=== PATIENT | female | born 2000 | race Caucasian/White ===

== ENCOUNTER 2021-01-04 16:07 | Emergency (ER) | payer OTHER ==
[~2021-01-04] VITALS: Ht 162.6 cm; Wt 47.6 kg
[2021-01-04] MEDS ORDERED: PEPCID AC20 MG PO (22:44)
[2021-01-04] MEDS ORDERED: NAPROXEN500 MG PO (22:44)
== END 2021-01-04 22:50 | disposition home or self-care (01) ==
LOC: ER 16:07
DX: N83.291 Other ovarian cyst, right side (principal); R10.2 Pelvic and perineal pain; K29.70 Gastritis, unspecified, without bleeding

== ENCOUNTER 2023-10-14 09:28 | Emergency (ER) | payer OTHER ==
[~2023-10-14] VITALS: Ht 162.6 cm; Wt 47.6 kg
[~2023-10-14 09:28] MED LIST: NAPROXEN500 MG PO; PEPCID AC20 MG PO
[2023-10-14 11:03] LABS: HEMOGLOBIN 14.1 g/dL (12.0-15.00); MEAN CELL VOLUME 90.3 fL (80.00-100.00); MEAN CORPUSCULAR HEMOGLOBIN 30.4 pg (27.00-32.0); MEAN CORPUSCULAR HGB CONC 33.6 g/dl (32.0-36.0); PLATELET COUNT 188 K/uL (150-450); RED BLOOD COUNT 4.66 M/uL (4.00-6.00); RED CELL DISTRIBUTION WIDTH 13.1 % (11.5-14.5)
[2023-10-14 11:27] LABS: CALCIUM 8.7 mg/dL (8.5-10.1); CREATININE SERUM 0.93 mg/dL (0.55-1.02); GFR 73.46; POTASSIUM 3.81 mEq/L (3.5-5.1)
[2023-10-14 11:53] LABS: PH,URINE 7.5 (5.0-8.0); URINE APPEARANCE Clear; URINE BILIRRUBIN Negative (NEGATIVE); URINE BLOOD Small; URINE COLOR Yellow; URINE GLUCOSE Negative (NEGATIVE); URINE LEUKOCYTE Negative; URINE NITRATE Negative; URINE PROTEIN Negative (NEGATIVE); URINE UROBILINOGEN 0.2 E.U./dl
[2023-10-14 11:54] LABS: URINE EPITHELIAL CELLS 12.2 uL (0.0-38.8); URINE RBC 15.3 uL (0.0-20.8); URINE WBC 4.1 uL (0.0-23.2)
== END 2023-10-14 15:27 | disposition home or self-care (01) ==
LOC: ER 09:29
PROVIDERS: Emergency Medicine
DX: K52.89 Other specified noninfective gastroenteritis and colitis (principal)